=== PATIENT | female | born 1990 | race Caucasian/White ===

== ENCOUNTER 2020-04-04 18:02 | Emergency (ER) | payer BC ==
[~2020-04-04] VITALS: Ht 154.9 cm; Wt 61.4 kg
[~2020-04-04 18:02] MED LIST: AMOXICILLIN500 MG OR; NO HOME MEDS
[2020-04-04] MEDS ORDERED: AMOX/K CLAV875 M1 PO (18:32)
[2020-04-04 19:36] VITALS: BP 129/92
== END 2020-04-04 19:47 | disposition home or self-care (01) | DRG 605 ==
LOC: ED 18:02
PROC: 0HQFXZZ Repair Right Hand Skin, External Approach (ICD-10-PCS; principal; 2020-04-04)
PROC: 0HQEXZZ Repair Left Lower Arm Skin, External Approach (ICD-10-PCS; 2020-04-04)
DX: S61.451A Open bite of right hand, initial encounter (principal); S51.852A Open bite of left forearm, initial encounter; S61.452A Open bite of left hand, initial encounter; W54.0XXA Bitten by dog, initial encounter; Y92.009 Unspecified place in unspecified non-institutional (private) residence as the place of occurrence of the external cause